=== PATIENT | male | born 2000 | race African-American/Black ===

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

== ENCOUNTER 2022-06-14 10:23 | Emergency (ER) | payer OTHER ==
[~2022-06-14] VITALS: Ht 172.7 cm; Wt 60.0 kg
[2022-06-14 11:06] LABS: Urine Bacteria FEW /hpf (None Seen); Urine Blood Negative /uL (Negative); Urine Mucus FEW (None Seen); Urine Specific Gravity 1.012 (1.001-1.035); Urine WBC 98 /hpf (0 - 3)
[2022-06-14 11:56] LABS: Basophils # (auto) 0.1 10 ^3/uL (0-0.2); Basophils % (auto) 0.4 % (0.0-2.0); Eosinophils # (auto) 0 10 ^3/uL (0-0.8); Eosinophils % (auto) 0.3 % (0.0-7.0); Hematocrit 41.9 % (41.0-53.0); Hemoglobin 14.1 g/dL (13.5-17.5); Lymphocytes # (auto) 1.3 10 ^3/uL (0.4-5.4); Lymphocytes % (auto) 7.5 % (10.0-50.0); Mean Corpuscular Hemoglobin 28.9 pg (28.0-32.0); Mean Corpuscular Hgb Conc. 33.6 g/dL (32.0-36.0); Monocytes # (auto) 1.8 10 ^3/uL (0-1.3); Monocytes % (auto) 10.4 % (0.0-12.0); Neutrophils # (auto) 14.1 10 ^3/uL (1.6-8.6); Neutrophils % (auto) 81.4 % (37.0-80.0); Red Blood Cells 4.87 10^6/uL (4.5-5.90); Red Cell Distribution Width 12.8 % (11.8-14.3); White Blood Cell 17.4 10^3/uL (4.4-10.8)
[2022-06-14 12:09] LABS: Albumin 3.4 g/dL (3.4-5.0); BUN/Creatinine Ratio 9.2; Calcium 9.3 mg/dL (8.5-10.1)
[2022-06-14 12:11] LABS: Total Protein 8.5 g/dL (6.4-8.2)
[2022-06-14] MEDS ORDERED: cefTRIAXone 1GM/50ML D5W 50 ML IV ONE (12:15)
[2022-06-14] MEDS ORDERED: KETOROLAC TROMETH 30 MG/ML 1ML VIAL IV ONE (15:45)
[2022-06-14] MEDS ORDERED: DOXY-340 PO (16:09)
[2022-06-14 17:28] VITALS: BP 118/62
== END 2022-06-14 17:32 | disposition home or self-care (01) ==
LOC: ER 10:23
DX: N45.3 Epididymo-orchitis (principal); N43.3 Hydrocele, unspecified
CPT/HCPCS: 36415; 74176; 76870; 80053; 81001; 85025; 87491; 87591; 93971; 96365; 96375; 99285; J0696; J1885

== ENCOUNTER 2023-12-05 13:25 | Emergency (ER) | payer OTHER ==
[~2023-12-05 13:25] MED LIST: DOXY1CAP57 PO
== END 2023-12-05 14:05 | disposition left against medical advice (07) ==
LOC: ER 13:25
DX: K08.89 Other specified disorders of teeth and supporting structures (principal); Z53.21 Procedure and treatment not carried out due to patient leaving prior to being seen by health care provider